=== PATIENT | female | born 1995 | race Caucasian/White ===

== ENCOUNTER 2021-02-17 09:24 | Outpatient (CLI) | payer OTHER | END 2021-02-17 11:30 | disposition short-term general hospital (02) | LOC: GENOP 09:24 | DX: O26.872 Cervical shortening, second trimester (principal); Z3A.19 19 weeks gestation of pregnancy; Z20.822 Contact with and (suspected) exposure to COVID-19; Z87.59 Personal history of other complications of pregnancy, childbirth and the puerperium | CPT/HCPCS: 81001; G0463; U0002 ==